=== PATIENT | female | born 1960 | race Two or more races ===

== ENCOUNTER 2023-03-16 08:14 | Emergency (ER) | payer MEDICAID ==
[~2023-03-16] VITALS: Ht 162.6 cm; Wt 77.2 kg
[2023-03-16 08:32] VITALS: BP 118/66; PULSE 90; RESP 18; TEMP 97.6; O2SAT 97
[2023-03-16] MEDS ORDERED: KETOROLAC TROMETH 60MG/2ML VIAL IM ONE (08:45)
[2023-03-16] MEDS ORDERED: TETANUS-DIPTH-ACEL PERTUSSIS 0.5ML SYR Tdap IM ONE (08:45)
[2023-03-16] MEDS ORDERED: IBUP-1455 PO (08:59)
[2023-03-16] MEDS ORDERED: AUG875T PO (08:59)
[2023-03-16] MEDS ORDERED: ACE3T PO (08:59)
== END 2023-03-16 09:15 | disposition home or self-care (01) ==
LOC: ER 08:14
DX: K04.7 Periapical abscess without sinus (principal); K02.9 Dental caries, unspecified
CPT/HCPCS: 90471; 90715; 96372; 99284; J1885

== ENCOUNTER 2023-03-17 06:44 | Emergency (ER) | payer MEDICAID ==
[~2023-03-17] VITALS: Ht 162.6 cm; Wt 79.5 kg
[~2023-03-17 06:44] MED LIST: ACE3T PO; AUG875T PO; IBUP-1455 PO
[2023-03-17 07:00] VITALS: BP 128/74; PULSE 85; RESP 16; O2SAT 95
== END 2023-03-17 12:20 | disposition home or self-care (01) ==
LOC: ER 06:44
DX: K04.7 Periapical abscess without sinus (principal); K02.9 Dental caries, unspecified